=== PATIENT | female | born 1940 | race Caucasian/White ===

== ENCOUNTER → 2021-11-19 | Outpatient (CLI) | payer MEDICARE ==
--- NOTE | 2021-11-19 11:09 | XR ---
EXAMINATION TYPE: XR knee complete bilateral DATE OF EXAM: 11/19/2021 COMPARISON: None available INDICATION: 81-year-old female, bilateral knee pain and right knee swelling TECHNIQUE: Standard 3 views for each knee FINDINGS: Osteopenia. Moderate degenerative changes of the knee joints with sharp tibial spines, narrowing of t he medial tibiofemoral compartments and medial tibiofemoral osteophytosis, Slightly more on the right side. No definite acute fracture line identified. No sizable knee joint effusion bilaterally. Arterial athe rosclerotic calcifications. IMPRESSION: Moderate degenerative changes of the knee joints as described above.
== END | disposition home or self-care (01) ==
LOC: RADXRYALE 10:28
PROVIDERS: ATTEND Family Medicine
DX: M25.561 Pain in right knee (principal); M25.562 Pain in left knee

== ENCOUNTER → 2023-02-03 | Day surgery (SDC) | payer MEDICARE ==
[~2023-02-03] MED LIST: ALPRAZolam 0.25 MG TAB PO PRN; ALPRAZolam 0.5 MG TAB PO PRN; ASPIRIN 325 MG TAB PO STA; ATORVASTATIN 80 MG TAB PO STA; HEPARIN SODIUM 1,000 UN/ML (10ML VL) IV ONE; HEPARIN SODIUM,PORCINE 10,000 UNIT in SODIUM CHLORIDE 0.9% 1,000 ML IRRIGATION PRN; HEPARIN SODIUM,PORCINE 2,500 UNIT in SODIUM CHLORIDE 0.9% 250 ML IRRIGATION PRN; IOPAMIDOL-370 100ML BTL INJ ONE; LIDOCAINE 1% INJ 10MG/ML (5 ML VIAL-PF) SQ ONE; METOPROLOL SUCCINATE (ER) 25 MG TAB.ER.24H PO SCH; MIDAZOLAM 2 MG/2 ML VIAL IV ONE; NITROGLYCERIN SL TABS 0.4 MG TAB SUBLINGUAL PRN; SODIUM CHLORIDE 0.9% 1,000 ML IV ONE; SODIUM CHLORIDE 0.9% 1,000 ML in EMPTY BAG 1 BAG IV SCH; VERAPAMIL 2.5 MG/ML 2 ML AMP ONE; VERAPAMIL SYRINGE (5 MG/10 ML) INTRAARTER ONE
[2023-02-03 09:55] VITALS: RESP 16; TEMP 97.9
[2023-02-03 15:21] VITALS: BP 158/73; PULSE 56
--- NOTE | 2023-02-03 15:34 | P.CARDCATH ---
Description of Procedure: PROCEDURES PERFORMED: Left heart catheterization, bilateral coronary angiography, iFR LAD, iFR circumflex INDICATION: CAD, abnormal stess test CONSENT:I have discussed the risks, benefits and alternative therapies for the above-mentioned procedure and for both sedation/analgesia as well as necessary blood product administration, if indicated, as they pertain to this patient. The patient has indicated understanding and acceptance of the risks and procedures discussed. PROCEDURE: After the risks, benefits and alternatives of the above mentioned procedure explained in detail with the patient, informed consent was obtained. Patient was taken to the catheterization lab and prepped and draped in usual fashion. 1% lidocaine was used to anesthetize the right radial artery. A 6- Maldivian sheath was placed in the right radial artery using modified Seldinger technique. Left coronary angiography was performed with a 5-Maldivian JL 3.5 catheter and right coronary angiography was performed with a 5-Maldivian JR5 catheter in various views. A 5-Maldivian FR5 catheter was inserted into the left ventricle and pressure measurements were obtained. The decision was made to perform iFR of the LAD and circumflex. A 6-Maldivian CLS 3.0 guide was using occasional left main. A 0.014 pressure wire was inserted into the left main and normalize. It was then inserted into the mid to distal LAD approximately 1 cm past the LAD lesion with iFR abnormal at 0.74. The wire was then advanced into the circumflex 1 and rare past the lesion and iFR was again performed and abnormal at 0.65. Given patient not on any medications and some hesitancy to take medications, possibly even antiplatelets decision was made to perform medical therapy first and if still having significant angina may consider angioplasty. The guide catheter was removed. The right radial sheath was removed and a TR band was placed with hemostasis achieved. The patient tolerated the procedure well. Patient was transported back to the post catheterization holding area in stable condition. Conscious Sedation: Patient was monitored under the direct supervision of myself for conscious sedation using Versed and fentanyl for a total duration of 32 minutes HEMODYNAMICS: Ao: 176/89 LV: 172/5, LVEDP 18mmHg SELECTIVE CORONARY ARTERIOGRAPHY: LEFT MAIN: The left main is a large caliber vessel which bifurcates into the LAD and circumflex. There is no significant stenosis. LEFT ANTERIOR DESCENDING CORONARY ARTERY: LAD is a large caliber vessel which wraps around to the apex. There is a mid LAD 70% stenosis followed by a bifurcation 60-70% stenosis. Majority of pressure difference was at the mid LAD 70% lesion on iFR LEFT CIRCUMFLEX CORONARY ARTERY: Left circumflex is a moderate caliber vessel with a mid circumflex 90% stenosis. RIGHT CORONARY ARTERY: The right coronary artery is a small to moderate caliber vessel which gives off a PDA and PLV branch and is the dominant vessel. There diffuse heavily calcified proximal to distal RCA stenosis with tandem 99% stenoses, possibly with an antegrade channel. FINAL IMPRESSION: 1. Multivessel CAD as described above including 90% circumflex, 70% mid LAD, 99% RCA with left to right collaterals 2. iFR LAD and circumflex abnormal 3. Mildly elevated left sided filling pressures 4. Questionable medical compliance with hesitancy to take any medications PLAN: 1. Aggressive risk factor modification per most recent ACC/AHA guidelines. 2. Start antianginals and monitor response. If having more angina, consider PCI if willing to take Plavix.
== END ==
LOC: CATHCVL 09:34
PROVIDERS: ATTEND Internal Medicine
DX: I25.10 Atherosclerotic heart disease of native coronary artery without angina pectoris (principal); I11.9 Hypertensive heart disease without heart failure; E78.2 Mixed hyperlipidemia; Z79.02 Long term (current) use of antithrombotics/antiplatelets; Z79.82 Long term (current) use of aspirin; Z79.899 Other long term (current) drug therapy; I25.9 Chronic ischemic heart disease, unspecified; I08.1 Rheumatic disorders of both mitral and tricuspid valves; Z82.49 Family history of ischemic heart disease and other diseases of the circulatory system
CPT/HCPCS: 93458; 93799; 99152; 99153; C1887; C1769 ×2; C1894; J2250; J2001; J1644; Q9967

== ENCOUNTER 2023-03-09 10:25 | Inpatient (IN) | payer MEDICARE ==
[~2023-03-09 10:25] MED LIST changes: -ALPRAZolam 0.25 MG TAB PO PRN; -HEPARIN SODIUM 1,000 UN/ML (10ML VL) IV ONE; -HEPARIN SODIUM,PORCINE 10,000 UNIT in SODIUM CHLORIDE 0.9% 1,000 ML IRRIGATION PRN; -HEPARIN SODIUM,PORCINE 2,500 UNIT in SODIUM CHLORIDE 0.9% 250 ML IRRIGATION PRN; -IOPAMIDOL-370 100ML BTL INJ ONE; -LIDOCAINE 1% INJ 10MG/ML (5 ML VIAL-PF) SQ ONE; -METOPROLOL SUCCINATE (ER) 25 MG TAB.ER.24H PO SCH; -MIDAZOLAM 2 MG/2 ML VIAL IV ONE; -NITROGLYCERIN SL TABS 0.4 MG TAB SUBLINGUAL PRN; -SODIUM CHLORIDE 0.9% 1,000 ML IV ONE; -VERAPAMIL 2.5 MG/ML 2 ML AMP ONE; -VERAPAMIL SYRINGE (5 MG/10 ML) INTRAARTER ONE
[2023-03-09] MEDS ORDERED: SODIUM CHLORIDE 0.9% 1,000 ML IV ONE (10:38)
[2023-03-09] MEDS ORDERED: fentaNYL (PF) 50 MCG/ML 2 ML AMP ONE ×2 (11:33→13:49)
[2023-03-09] MEDS ORDERED: VERAPAMIL 2.5 MG/ML 2 ML AMP ONE (11:33)
[2023-03-09] MEDS ORDERED: MIDAZOLAM 2 MG/2 ML VIAL IVP ONE (12:10)
[2023-03-09] MEDS ORDERED: fentaNYL (PF) 50 MCG/ML 2 ML AMP IVP ONE (12:11)
[2023-03-09] MEDS ORDERED: LIDOCAINE 1% INJ 10MG/ML (5 ML VIAL-PF) SQ ONE (12:11)
[2023-03-09] MEDS ORDERED: LIDOCAINE 1% INJ 10MG/ML (20 ML MDV) ONE (12:22)
[2023-03-09] MEDS ORDERED: VERAPAMIL SYRINGE (5 MG/10 ML) INTRAARTER ONE (12:23)
[2023-03-09] MEDS: HEPARIN SODIUM 1,000 UN/ML (10ML VL) IV ONE ×2 (12:25→13:09)
[2023-03-09] MEDS ORDERED: CLOPIDOGREL 75 MG TAB ONE (12:32)
[2023-03-09] MEDS ORDERED: CLOPIDOGREL 75 MG TAB PO ONE (12:37)
[2023-03-09] MEDS ORDERED: NITROGLYCERIN 1000MCG/10ML SYRINGE INTRACORON ONE ×2 (12:40→12:44)
[2023-03-09] MEDS: HEPARIN SODIUM 1,000 UN/ML (10ML VL) ONE ×2 (12:40→12:57)
[2023-03-09] MEDS ORDERED: IOPAMIDOL-370 100ML BTL INJ ONE ×2 (12:45→13:46)
[2023-03-09] MEDS ORDERED: HEPARIN SODIUM 1,000 UN/ML (10ML VL) IV ONE ×2 (13:35→13:45)
[2023-03-09] MEDS ORDERED: ATROPINE SULFATE 0.1 MG/ML 10ML SYRINGE IV PRN (14:01)
[2023-03-09] MEDS ORDERED: ZOLPIDEM 5 MG TAB PO PRN (14:01)
[2023-03-09] MEDS ORDERED: RX INFO: IV CONTRAST WAS GIVEN 1 EACH MISC MISCELLANE PRN (14:01)
[2023-03-09] MEDS ORDERED: MAG HYDROX/AL HYDROX/SIMETH 30 ML CUP PO PRN (14:01)
[2023-03-09] MEDS ORDERED: LOSARTAN 25 MG TAB PO STA (14:04)
--- NOTE | 2023-03-09 14:36 | P.PRCINT ---
Percutaneous Coronary Int. - Percutaneous Coronary Intervention Percutaneous Coronary Intervention: PROCEDURES PERFORMED: Left coronary angiography, ultrasound guided arterial access, PCI circumflex with a 2.5 x 23 mm Xience GOLDIE, PCI proximal to mid LAD with overlapping 3.0 x 12, 3.0 x 38mm Xience GOLDIE, post dilated with a 3.5 NC balloon, CSI rotational atherectomy LAD, IVUS LAD INDICATION: NYHA class 3 angina, abnormal iFR from prior angiogram CONSENT:I have discussed the risks, benefits and alternative therapies for the above-mentioned procedure and for both sedation/analgesia as well as necessary blood product administration, if indicated, as they pertain to this patient. The patient has indicated understanding and acceptance of the risks and procedures discussed. PROCEDURE: After the risks, benefits and alternatives of the above mentioned procedure explained in detail with the patient, informed consent was obtained. Patient was taken to the catheterization lab and prepped and draped in usual fashion. Ultrasound guidance was used to assess for arterial access. 1% lidocaine was used to anesthetize the right ulnar artery as this appeared more amenable under ultrasound. A 6-Puerto Rican sheath was placed in the right ulnar artery using modified Seldinger technique and ultrasound guidance. Left cor onary angiography was performed with a 6-[place]ican CLS 3.5 catheter The decision was made to perform PCI of the circumflex and LAD. Heparin was given. A 0.014 BMW wire was advanced in the distal circumflex. Predilation was performed with a 2.25 x 12 mm noncompliant balloon. Next a 2.5 x 23 mm Xience GOLDIE was placed in the mid circumflex. Preintervention there was 95% stenosis and DAYANNA-3 flow and postintervention there was less than 10% stenosis and DAYANNA-3 flow. Next the decision was made to perform PCI of LAD. A 0.014 Viper wire was advanced in the distal LAD. CSI rotational atherectomy was performed for 4 passes. Predilation was performed with a 3.0 x 20 mm noncompliant and then 3.5 x 20 mm noncompliant balloon. Intravascular ultrasound showed diffuse disease throughout the entire proximal LAD however mid LAD appearing somewhat more normal with 3.0 mm diameter. Next overlapping 3.0 x 38 mm Xience GOLDIE distally and 3.0 x 12 mm Xience GOLDIE more proximally were placed from the proximal to mid LAD. The stent was postdilated with a 3.5 x 12 mm noncompliant balloon. The diagonal 1 was noted to be small caliber, less than 1.5 mm and not felt amenable for predilation. There was jailing of the diagonal branch and patient did have chest pain. Intravascular ultrasound unable to easily be advanced past the bend of the mid LAD however for the proximal and midportion of the stent appeared well expanded with no dissection. Final angiograms were performed. Preintervention there was 85% stenosis and DAYANNA-3 flow and postintervention there was less than 10% stenosis with DAYANNA 3 flow with jailing of a small caliber diagonal branch. The right ulnar sheath was removed and a TR band was placed with hemostasis achieved. The patient tolerated the procedure well. Patient was transported back to the post catheterization holding area in stable condition. Conscious Sedation: Patient was monitored under the direct supervision of myself for conscious sedation using Versed and fentanyl for a total duration of 90 minutes HEMODYNAMICS: Aorta: 172/72 SELECTIVE CORONARY ARTERIOGRAPHY: LEFT MAIN: The left main is a large caliber vessel which bifurcates into the LAD and circumflex. There is no significant stenosis. LEFT ANTERIOR DESCENDING CORONARY ARTERY: LAD is a large caliber vessel which wraps around to the apex. There is a long, diffuse proximal mid LAD mainly 50 i s 60% stenosis and more focal mid LAD 85% stenosis. There is a nearly aneurysmal portion of the LAD just past the diagonal 1 branch. There are [id number] collaterals. RAMUS INTERMEDIUS: The ramus intermedius is a moderate caliber vessel with mild luminal irregularities. LEFT CIRCUMFLEX CORONARY ARTERY: Left circumflex is a moderate caliber vessel with a mid circumflex 95% stenosis just after a small caliber OM1 branch. RIGHT CORONARY ARTERY: The right coronary artery was not imaged however known to be 100% occluded. FINAL IMPRESSION: 1. CAD as described above including mid LAD 85% stenosis, apical LAD 90% stenosis, mid circumflex 95% stenosis, 100% RCA stenosis of the left great collaterals 2. S/p PCI circumflex with a 2.5 x 23 mm Xience GOLDIE 3. S/p PCI proximal to mid LAD with overlapping 3.0 x 12, 3.0 x 38mm Xience GOLDIE, post dilated with a 3.5 NC balloon, CSI rotational atherectomy LAD PLAN: 1. Aggressive risk factor modification per most recent ACC/AHA guidelines. 2. Continue to antiplatelets for 6 months. 3. Likely treat RCA medically unless has resistant angina.
[2023-03-09] MEDS ORDERED: ONDANSETRON 4 MG/2 ML VIAL IVP PRN (14:41)
[2023-03-09] MEDS: NITROGLYCERIN SL TABS 0.4 MG TAB SUBLINGUAL PRN ×3 (14:51→20:35)
[2023-03-09] MEDS: ALPRAZolam 0.25 MG TAB PO PRN (16:01)
[2023-03-09] MEDS: ATORVASTATIN 40 MG TAB PO SCH (20:14)
[2023-03-10 08:05] LABS: Basophils % (A) 0 %; Eosinophils # (A) 0.1 k/uL (0-0.7); Eosinophils % (A) 1 %; HCT 36.2 % (34.0-46.0); HGB 11.6 gm/dL (11.4-16.0); Lymphocytes # (A) 1.4 k/uL (1.0-4.8); Lymphocytes % (A) 17 %; MCH 30.6 pg (25.0-35.0); MCHC 32.1 g/dL (31.0-37.0); MCV 95.5 fL (80.0-100.0); Mean Platelet Volume 8.5; Monocytes # (A) 0.5 k/uL (0-1.0); Monocytes % (A) 6 %; Neutrophils % (A) 74 %; Platelet Count 135 k/uL (150-450); RBC 3.79 m/uL (3.80-5.40); RDW 13.5 % (11.5-15.5); WBC 8.1 k/uL (3.8-10.6)
[2023-03-10] MEDS ORDERED: MAG HYDROX/AL HYDROX/SIMETH 30 ML, HYOSCYAMINE ELIXIR 10 ML PO ONE ×2 (08:14)
[2023-03-10] MEDS ORDERED: HEPARIN SODIUM 1,000 UN/ML (10ML VL) IV ONE (08:23)
[2023-03-10] MEDS ORDERED: HEPARIN SODIUM 1,000 UN/ML (10ML VL) IV PRN (08:23)
[2023-03-10] MEDS: NITROGLYCERIN SL TABS 0.4 MG TAB SUBLINGUAL PRN (08:34)
[2023-03-10] MEDS: HEPARIN SOD,PORK IN 0.45% NACL 25,000 UNIT in 0.45% NACL 1 250ML.BAG IV SCH (08:39)
[2023-03-10 08:40] LABS: African American GFR (CKD) >90 (>60 ml/min/1.73 sqM); Anion Gap 4 mmol/L; Blood Urea Nitrogen 12 mg/dL (7-17); Calcium 8.3 mg/dL (8.4-10.2); Carbon Dioxide 25 mmol/L (22-30); Chloride 103 mmol/L (98-107); Glucose 101 mg/dL (74-99); Non-African American GFR(CKD) >90 (>60 ml/min/1.73 sqM); Potassium 3.7 mmol/L (3.5-5.1); Sodium 132 mmol/L (137-145)
[2023-03-10] MEDS ORDERED: MORPHINE SULFATE 2 MG/ML SYRINGE IVP PRN (08:51)
[2023-03-10] MEDS ORDERED: GARLIC 100 MG PO SCH (09:00)
[2023-03-10] MEDS ORDERED: NITROGLYCERIN-D5W PMX 50 MG in DEXTROSE/WATER 1 250ML.BAG IV SCH (09:00)
[2023-03-10 10:23] LABS: Basophils % (A) 0 %; Eosinophils # (A) 0.1 k/uL (0-0.7); Eosinophils % (A) 1 %; HCT 35.3 % (34.0-46.0); HGB 12.2 gm/dL (11.4-16.0); Lymphocytes # (A) 1.3 k/uL (1.0-4.8); Lymphocytes % (A) 17 %; MCH 32.6 pg (25.0-35.0); MCHC 34.5 g/dL (31.0-37.0); MCV 94.4 fL (80.0-100.0); Mean Platelet Volume 8.5; Monocytes # (A) 0.4 k/uL (0-1.0); Monocytes % (A) 6 %; Neutrophils # (A) 5.5 k/uL (1.3-7.7); Neutrophils % (A) 75 %; Platelet Count 140 k/uL (150-450); RBC 3.74 m/uL (3.80-5.40); RDW 13.6 % (11.5-15.5); WBC 7.4 k/uL (3.8-10.6)
[2023-03-10] MEDS: ASPIRIN 81 MG PO SCH (10:48)
[2023-03-10] MEDS: LOSARTAN 25 MG TAB PO SCH (10:48)
[2023-03-10] MEDS: CLOPIDOGREL 75 MG TAB PO SCH (10:48)
[2023-03-10] MEDS: ALPRAZolam 0.25 MG TAB PO PRN ×2 (10:53→20:23)
[2023-03-10] MEDS: ACETAMINOPHEN TAB 325 MG TAB PO PRN ×2 (10:53→16:38)
[2023-03-10] MEDS ORDERED: ASPIRIN 81 MG PO STA (11:19)
[2023-03-10 11:31] LABS: African American GFR (CKD) >90 (>60 ml/min/1.73 sqM); Anion Gap 7 mmol/L; Blood Urea Nitrogen 11 mg/dL (7-17); Calcium 8.7 mg/dL (8.4-10.2); Carbon Dioxide 24 mmol/L (22-30); Chloride 102 mmol/L (98-107); Glucose 132 mg/dL (74-99); Non-African American GFR(CKD) >90 (>60 ml/min/1.73 sqM); Potassium 3.9 mmol/L (3.5-5.1); Sodium 133 mmol/L (137-145)
[2023-03-10] MEDS ORDERED: IV FLUID CONTINUATION 950 ML IV ONE (11:58)
[2023-03-10] MEDS ORDERED: LIDOCAINE 1% INJ 10MG/ML (20 ML MDV) ONE (12:13)
[2023-03-10] MEDS ORDERED: VERAPAMIL 2.5 MG/ML 2 ML AMP ONE (12:13)
[2023-03-10] MEDS ORDERED: HEPARIN SODIUM 1,000 UN/ML (10ML VL) ONE (12:26)
[2023-03-10] MEDS ORDERED: fentaNYL (PF) 50 MCG/ML 2 ML AMP ONE (12:26)
[2023-03-10] MEDS ORDERED: fentaNYL (PF) 50 MCG/ML 2 ML AMP IVP ONE (12:29)
[2023-03-10] MEDS ORDERED: LIDOCAINE 1% INJ 10MG/ML (5 ML VIAL-PF) SQ ONE (12:31)
[2023-03-10] MEDS ORDERED: VERAPAMIL SYRINGE (5 MG/10 ML) INTRAARTER ONE (12:32)
[2023-03-10] MEDS ORDERED: MIDAZOLAM 2 MG/2 ML VIAL IVP ONE (12:32)
[2023-03-10] MEDS ORDERED: IOPAMIDOL-370 100ML BTL INJ ONE (12:43)
[2023-03-10 15:11] VITALS: BMI 22.1
[2023-03-10] MEDS: ATORVASTATIN 40 MG TAB PO SCH (20:20)
--- NOTE | 2023-03-10 21:01 | P.PN ---
Subjective HISTORY OF PRESENT ILLNESS: This is a 82 year old female with history of medication noncompliance and CAD who presented for elective PCI. She has a history of some hesitation taking medications however has been having angina symptoms despite antianginals. She had a diagnostic catheterization showing multivessel CAD with LAD, circumflex and RCA disease with iFR circumflex ad LAD abnormal. Given concern of taking her meds, stenting was deferred and was placed on metoprolol. She underwent elective left coronary angiography yesterday with stenting of her circumflex as well as more complex stenting of her LAD with atherectomy and IVUS. She did have jailing of a small caliber diagonal branch and some temporary ST elevations in the lateral leads secondary to the diagonal branch as well as chest pain during and after the procedure. Overall she had been doing much better throughout the night and her pain had stopped last night. She did have mild swelling of the right ulnary site however 2+ pulse and no hematoma. Unfortunately she started having reoccurence of chest pain at approximately 7:30 this morning which was right after eating her breakfast and initially felt related to eating her eggs. EKG however showed new dynamic ST/ T wave abnormalities in V3-V6 which was new from prior EKG from approximately 4PM yesterday. Therefore she was given IV heparin, nitro drip. There were technical difficulties of power outage and unclear reliability of power throughout cath with xray going in and out of power. Therefore initially attempted medical therapy however still have chest pain throughout, 2-11/05 however EKG had become more normalized. Troponin noted to be significantly elevated. Patient was taken for cath however by time she reached laborer laboratory chest pain had resolved on heparin drip and nitro drip at 20. Left coronary angiography from a left radial was performed with patent stent and continued unchanged apical lesion. She was placed back on heparin drip for goal 24 hrs. PHYSICAL EXAM: VITAL SIGNS: Reviewed. GENERAL: Well-developed in no acute distress. HEENT: Head is normocephalic. Pupils are equal, round. Sclerae anicteric. Mucous membranes of the mouth are moist. Neck supple. No JVD or thyromegaly LUNGS: Respirations even and unlabored. Lungs essentially clear to auscultation bilaterally. HEART: Irregular rate and rhythm. S1 and S2 heard. ABDOMEN: Soft. Nondistended. Nontender. EXTREMITIES: Normal range of motion. No clubbing or cyanosis. Peripheral pulses intact. Trace lower extremity edema NEUROLOGIC: Awake and alert. Oriented x 3. ASSESSMENT: 1. CAD with 95% circumflex, 100% RCA, 90% LAD, s/p PCI LAD, cicumflex 03/09 2. Periprocedural NSTEMI 3. 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 Continue to monitor patient symptomatically for any repeat chest pain. Continue dual antiplatelets. Continue heparin for 12-24 hrs and possible DC home tomorrow pending patients progress. Objective - Vital Signs Vital signs: Vital Signs Temp 98.5 F 03/10/23 08:30 Pulse 62 03/10/23 08:30 Resp 17 03/10/23 08:30 BP 167/79 03/10/23 08:30 Pulse Ox 98 03/10/23 09:45 FiO2 Intake & Output 03/09/23 03/10/23 03/10/23 18:59 06:59 18:59 Intake Total 250 180 252.508 Balance 250 180 252.508 Weight 66.2 kg 66.2 kg Intake: IV 250 50 Intake, IV Titration 22.508 Amount Heparin Sod,Pork in 0.45% 22.508 NaCl 25,000 unit In 0.45 % NaCl 1 250ml.bag @ 12 UNITS/KG/HR 7.944 mls/hr IV .Q24H [facility] Rx#: [id number] Oral 180 180 Other: Voiding Method Toilet Toilet # Voids 2 1 1 - Labs CBC & Chem 7: 03/10/23 09:43 03/10/23 09:43 Labs: Abnormal Lab Results - Last 24 Hours (Table) 03/10/23 03/10/23 03/10/23 Range/Units 07:05 07:05 09:42 RBC 3.79 L (3.80-5.40) m/uL Plt Count 135 L (150-450) k/uL Sodium 132 L (137-145) mmol/L Creatinine 0.47 L (0.52-1.04) mg/dL Glucose 101 H (74-99) mg/dL Calcium 8.3 L (8.4-10.2) mg/dL Troponin I 31.300 H* (0.000-0.034) ng/mL 03/10/23 03/10/23 03/10/23 Range/Units 09:43 09:43 13:20 RBC 3.74 L (3.80-5.40) m/uL Plt Count 140 L (150-450) k/uL Sodium 133 L (137-145) mmol/L Creatinine (0.52-1.04) mg/dL Glucose 132 H (74-99) mg/dL Calcium (8.4-10.2) mg/dL Troponin I 45.000 H* (0.000-0.034) ng/mL
--- NOTE | 2023-03-10 21:09 | P.CARDCATH ---
Description of Procedure: PROCEDURES PERFORMED: Left coronary angiography, ultrasound guided arterial access INDICATION: NSTEMI CONSENT:I have discussed the risks, benefits and alternative therapies for the above-mentioned procedure and for both sedation/analgesia as well as necessary blood product administration, if indicated, as they pertain to this patient. The patient has indicated understanding and acceptance of the risks and procedures discussed. PROCEDURE: After the risks, benefits and alternatives of the above mentioned procedure explained in detail with the patient, informed consent was obtained. Patient was taken to the catheterization lab and prepped and draped in usual fashion. Ultrasound guidance was used to assess for arterial access. 1% lidocaine was used to anesthetize the left radial artery as this appeared more amenable under ultrasound. A 6-Yakut sheath was placed in the let radial artery using modified Seldinger technique and ultrasound guidance. Left coronary angiography was performed with a 6-Yakut CLS 3.5 catheter. There was no significant difference from prior images with patent LAD and occluded diagonal and patient was chest pain free and therefore recommended medical therapy. The left radial sheath was removed and a TR band was placed with hemostasis achieved. The patient tolerated the procedure well. Patient was transported back to the post catheterization holding area in stable condition. Conscious Sedation: Patient was monitored under the direct supervision of myself for conscious sedation using Versed and fentanyl for a total duration of 16 minutes HEMODYNAMICS: Aorta: 131/75 SELECTIVE CORONARY ARTERIOGRAPHY: LEFT MAIN: The left main is a large caliber vessel which trifurcates into the LAD, ramus and circumflex. There is no significant stenosis. LEFT ANTERIOR DESCENDING CORONARY ARTERY: LAD is a large caliber vessel which wraps around to the apex. There is proximal LAD 30-40% stenosis and then a patent proximal to mid LAD stent. The distal/apical LAD has a 80% stenosis and is small caliber, similar to prior. The small caliber diagonal branch is occluded. There are [id number] collaterals. RAMUS INTERMEDIUS: The ramus intermedius is a moderate caliber vessel with mild luminal irregularities. LEFT CIRCUMFLEX CORONARY ARTERY: Left circumflex is a moderate caliber vessel with a mid circumflex stent which is patent and otherwise mild luminal irregularities. RIGHT CORONARY ARTERY: The right coronary artery was not imaged however known to be 100% occluded. FINAL IMPRESSION: 1. CAD as described above including proximal LAD 30-40%, distal LAD 80%, known RCA 100% with left to right collaterals 2. NSTEMI and dynamic EKG changes, possibly related to stent thrombosis and recanalization PLAN: 1. Aggressive risk factor modification per most recent ACC/AHA guidelines. 2. Continue dual antiplatelets for 6 months with aspirin and plavix. 3. Dynamic EKG changes and NSTEMI may be related to stent thrombosis and recanalization, improved after IV heparin. Continue heparin for 12 hours and monitor patient.
[2023-03-11] MEDS: ACETAMINOPHEN TAB 325 MG TAB PO PRN (00:28)
[2023-03-11] MEDS ORDERED: HEPARIN SODIUM,PORCINE 10,000 UNIT in SODIUM CHLORIDE 0.9% 1,000 ML IRRIGATION PRN (07:00)
[2023-03-11] MEDS ORDERED: HEPARIN SODIUM,PORCINE 2,500 UNIT in SODIUM CHLORIDE 0.9% 250 ML IRRIGATION PRN (07:00)
[2023-03-11] MEDS: HEPARIN SOD,PORK IN 0.45% NACL 25,000 UNIT in 0.45% NACL 1 250ML.BAG IV SCH (08:17)
[2023-03-11 08:20] VITALS: RESP 20
[2023-03-11] MEDS: LOSARTAN 25 MG TAB PO SCH (08:21)
[2023-03-11] MEDS: CLOPIDOGREL 75 MG TAB PO SCH (08:21)
[2023-03-11] MEDS: ASPIRIN 81 MG PO SCH (08:21)
[2023-03-11 09:11] LABS: Basophils % (A) 0 %; Eosinophils # (A) 0.1 k/uL (0-0.7); Eosinophils % (A) 1 %; Lymphocytes % (A) 14 %; MCH 31.1 pg (25.0-35.0); MCHC 33.2 g/dL (31.0-37.0); MCV 93.6 fL (80.0-100.0); Mean Platelet Volume 8.7; Monocytes # (A) 0.5 k/uL (0-1.0); Monocytes % (A) 6 %; Neutrophils # (A) 5.8 k/uL (1.3-7.7); Neutrophils % (A) 78 %; Platelet Count 132 k/uL (150-450); RBC 3.85 m/uL (3.80-5.40); RDW 13.8 % (11.5-15.5); WBC 7.5 k/uL (3.8-10.6)
--- NOTE | 2023-03-11 09:11 | P.DS ---
Providers Date of admission: 03/10/23 17:02 Attending physician: Jet Plummer DO Consults: 03/09/23 14:01 Consult Physician Routine Consulting Provider: [facility] Consult Reason/Comments: Post Interventional patient Do you want consulting provider notified?: Already Contacted Primary care physician: [facility] Course: This is a 82 year old female with history of medication noncompliance and CAD who presented for elective PCI. She has a history of some hesitation taking medications however has been having angina symptoms despite antianginals. She had a diagnostic catheterization showing multivessel CAD with LAD, circumflex and RCA disease with iFR circumflex ad LAD abnormal. Given concern of taking her meds, stenting was deferred and was placed on metoprolol. She underwent elective left coronary angiography yesterday with stenting of her circumflex as well as more complex stenting of her LAD with atherectomy and IVUS. She did have jailing of a small caliber diagonal branch and some temporary ST elevations in the lateral leads secondary to the diagonal branch as well as chest pain during and after the procedure. Overall she had been doing much better throughout the night and her pain had stopped last night. She did have mild swelling of the right ulnary site however 2+ pulse and no hematoma. Unfortunately she started having reoccurence of chest pain at approximately 7:30 this morning which was right after eating her breakfast and initially felt related to eating her eggs. EKG however showed new dynamic ST/ T wave abnormalities in V3-V6 which was new from prior EKG from approximately 4PM yesterday. Therefore she was given IV heparin, nitro drip. There were technical difficulties of power outage and unclear reliability of power throughout cath with xray going in and out of power. Therefore initially attempted medical therapy however still have chest pain throughout, 2-11/05 however EKG had become more normalized. Troponin noted to be significantly elevated. Patient was taken for cath however by time she reached grinding and polishing laborer chest pain had resolved on heparin drip and nitro drip at 20. Left coronary angiography from a left radial was performed with patent stent and continued unchanged apical lesion. She was placed back on heparin drip for goal 24 hrs. On 03/11 she is chest pain free and has been off heparin drip since 4am. She has been having some swelling in her right upper extremity and vasc band had been placed. This appears stable and has not been increasing per patient. She is anxious to go home. Denies any SOB. She appeared stable for DC home 03/11 with close followup. Plan - Discharge Summary Discharge Rx Participant: No New Discharge Prescriptions: New Losartan [Cozaar] 25 mg PO DAILY #90 tab Atorvastatin [Lipitor] 40 mg PO HS #90 tab Clopidogrel [Plavix] 75 mg PO DAILY #90 tab Continue Garlic 600 mg PO DAILY Aspirin 81 mg PO DAILY Metoprolol Succinate (ER) [Toprol XL] 25 mg PO DAILY #0 tab Discharge Medication List Garlic 600 mg PO DAILY 02/01/23 [History] Aspirin 81 mg PO DAILY 02/03/23 [History] Metoprolol Succinate (ER) [Toprol XL] 25 mg PO DAILY #0 tab 02/03/23 [Rx] Atorvastatin [Lipitor] 40 mg PO HS #90 tab 03/10/23 [Rx] Clopidogrel [Plavix] 75 mg PO DAILY #90 tab 03/10/23 [Rx] Losartan [Cozaar] 25 mg PO DAILY #90 tab 03/10/23 [Rx] Follow up Appointment(s)/Referral(s): Jet Plummer DO [STAFF PHYSICIAN] - 1 Week (APPOINTMENT MADE ON February @ 2:45PM ) Patient Instructions/Handouts: Moderate Sedation (DC), After Radial Heart Catheterization (GEN) Activity/Diet/Wound Care/Special Instructions: *NO LIFTING, PUSHING, OR PULLING ANYTHING OVER 5 POUNDS FOR 5 DAYS *NO DRIVING FOR 3 DAYS *YOU CAN REMOVE YOUR DRESSING AND SHOWER TOMORROW BUT DO NOT SUBMERSE YOUR PUNCTURE SITE IN WATER FOR A FEW DAYS TO PREVENT INFECTION - SO NO TUB BATHS, POOLS, HOT TUBS, DISHES...ET C *ANY SIGNS OF BLEEDING (HARDNESS, SWELLING, OR EXCESSIVE BRUISING) HOLD DIRECT P RESSURE ON YOUR PUNCTURE SITE AND COME TO THE NEAREST EMERGENCY ROOM TO GET YOUR PUNCTURE SITE LOOKED AT - DO NOT DRIVE YOURSELF! EITHER CALL EMS OR HAVE SOMEONE DRIVE YOU!
[2023-03-11 09:56] LABS: African American GFR (CKD) >90 (>60 ml/min/1.73 sqM); Anion Gap 4 mmol/L; Blood Urea Nitrogen 8 mg/dL (7-17); Calcium 8.4 mg/dL (8.4-10.2); Carbon Dioxide 26 mmol/L (22-30); Chloride 107 mmol/L (98-107); Glucose 165 mg/dL (74-99); Non-African American GFR(CKD) >90 (>60 ml/min/1.73 sqM); Potassium 3.6 mmol/L (3.5-5.1); Sodium 137 mmol/L (137-145)
[2023-03-11 11:37] VITALS: BP 170/76; PULSE 73; TEMP 98.3
== END 2023-03-11 13:36 | disposition home or self-care (01) | DRG 246 ==
LOC: CATHCVL 10:25 → 3SCARD 13:44 → CATHCVL 03-10 17:02
PROVIDERS: ADMIT Internal Medicine; ATTEND Internal Medicine
PROC: 027136Z Dilation of Coronary Artery, Two Arteries with Three Drug-eluting Intraluminal Devices, Percutaneous Approach (ICD-10-PCS; principal; 2023-03-09 12:00)
PROC: B240ZZ3 Ultrasonography of Single Coronary Artery, Intravascular (ICD-10-PCS; principal; 2023-03-09 12:00)
PROC: B2111ZZ Fluoroscopy of Multiple Coronary Arteries using Low Osmolar Contrast (ICD-10-PCS; principal; 2023-03-09 12:00)
PROC: 02C03Z7 Extirpation of Matter from Coronary Artery, One Artery, Orbital Atherectomy Technique, Percutaneous Approach (ICD-10-PCS; principal; 2023-03-09 12:00)
PROC: 4A033BC Measurement of Arterial Pressure, Coronary, Percutaneous Approach (ICD-10-PCS; principal; 2023-03-09 12:00)
PROC: 4A023N7 Measurement of Cardiac Sampling and Pressure, Left Heart, Percutaneous Approach (ICD-10-PCS; principal; 2023-03-09 12:00)
PROC: B2111ZZ Fluoroscopy of Multiple Coronary Arteries using Low Osmolar Contrast (ICD-10-PCS; 2023-03-10 09:25)
DX: I97.190 Other postprocedural cardiac functional disturbances following cardiac surgery (principal); I21.4 Non-ST elevation (NSTEMI) myocardial infarction; T82.867A Thrombosis due to cardiac prosthetic devices, implants and grafts, initial encounter; I11.9 Hypertensive heart disease without heart failure; I25.118 Atherosclerotic heart disease of native coronary artery with other forms of angina pectoris; Z28.310 Unvaccinated for COVID-19; E78.2 Mixed hyperlipidemia; I08.1 Rheumatic disorders of both mitral and tricuspid valves; T50.906A Underdosing of unspecified drugs, medicaments and biological substances, initial encounter; Z91.128 Patient's intentional underdosing of medication regimen for other reason; Y83.1 Surgical operation with implant of artificial internal device as the cause of abnormal reaction of the patient, or of later complication, without mention of misadventure at the time of the procedure; Z82.49 Family history of ischemic heart disease and other diseases of the circulatory system
CPT/HCPCS: 76937; 80048; 84484; 85025; 85730; 92978; 93454; 94760